=== PATIENT | female | born 1940 | race Caucasian/White ===

== ENCOUNTER 2025-03-21 06:20 | Day surgery (SDC) | payer MEDICARE ==
[2025-03-14 10:53] VITALS: BMI 26.4
[2025-03-21] MEDS ORDERED: Thrombin 5000 UNITS/5 ML VIAL ONE (06:46)
[2025-03-21] MEDS ORDERED: PROPOFOL 20 ML ONE ×2 (07:46→08:45)
[2025-03-21] MEDS ORDERED: CEFAZOLIN 2 GM VIAL ONE ×2 (07:51→12:00)
[2025-03-21] MEDS ORDERED: fentaNYL PF 100 MCG/2 ML SYRINGE ONE ×2 (07:54→09:01)
[2025-03-21] MEDS ORDERED: Ketorolac Tromethamine 30 MG (1 mL) VIAL ONE (08:45)
[2025-03-21] MEDS ORDERED: Lidocaine 1% PF 5 ML VIAL ONE (08:45)
[2025-03-21] MEDS ORDERED: Ondansetron PF 4 MG/2 ML Vial ONE ×2 (08:45→08:53)
[2025-03-21] MEDS ORDERED: Rocuronium Bromide 10 MG/ML (10ML VIAL) ONE (08:45)
[2025-03-21] MEDS ORDERED: PHENYLEPHRINE-NS 100 MCG/ML 10 ML SYRINGE ONE (09:08)
[2025-03-21] MEDS ORDERED: diphenhydrAMINE 50 MG/ML VIAL ONE (11:35)
== END 2025-03-21 13:35 | disposition home or self-care (01) ==
LOC: SDC 06:20
PROVIDERS: ATTEND Neurological Surgery
PROC: 0RG10A0 Fusion of Cervical Vertebral Joint with Interbody Fusion Device, Anterior Approach, Anterior Column, Open Approach (ICD-10-PCS; principal; 2025-03-21)
DX: M54.12 Radiculopathy, cervical region (principal); M48.02 Spinal stenosis, cervical region; E11.9 Type 2 diabetes mellitus without complications; Z98.49 Cataract extraction status, unspecified eye; Z90.49 Acquired absence of other specified parts of digestive tract; Z90.710 Acquired absence of both cervix and uterus; Z88.8 Allergy status to other drugs, medicaments and biological substances
CPT/HCPCS: 22551; 22845; 22853; C1713 ×2; C1889; J1100; J1200; J1885; J2405; J2704; J3010